=== PATIENT | female | born 1965 | race African-American/Black ===

== ENCOUNTER 2016-08-28 12:21 | Inpatient (IN) | payer OTHER ==
[2016-08-28 14:51] VITALS: BMI 24.9
--- NOTE | 2016-08-28 16:48 | HP ---
CIWA Score - CIWA Score Nausea/Vomitin-No Nausea/No Vomiting Muscle Tremors: 4-Moderate,w/Arms Extend Anxiety: 4-Mod. Anxious/Guarded Agitation: 4-Moderately Restless Paroxysmal Sweats: 3 Orientation: 0-Oriented Tacttile Disturbances: 0-None Auditory Disturbances: 0-None Visual Disturbances: 0-None Headache: 1-Very Mild CIWA-Ar Total Score: 16 Admission ROS BHS - HPI Chief Complaint: I want to stop drinking and give my self a birthday gift try to stay sober. Allergies/Adverse Reactions: Allergies Allergy/AdvReac Type Severity Reaction Status Date / Time penicillin G Allergy Severe Rash Verified 08/28/16 16:40 History of Present Illness: pt is a 50yr old female with a history of alcohol and cocaine dependence seeking detox for treatment. Exam Limitations: No Limitations - Ebola screening Have you traveled outside of the country in the last 21 days: No Have you had contact with anyone from an Ebola affected area: No Have you been sick,other than usual withdrawal symptoms: No Do you have a fever: No - Review of Systems Constitutional: Diaphoresis, Loss of Appetite, Night Sweats, Unintentional Wgt. Loss EENT: reports: No Symptoms Reported Respiratory: reports: Cough, Productive cough Cardiac: reports: No Symptoms Reported GI: reports: Poor Appetite, Poor Fluid Intake : reports: No Symptoms Reported Musculoskeletal: reports: Joint Pain Integumentary: reports: Flushing, Sweating Neuro: reports: Tingling, Tremors Endocrine: reports: Excessive Sweating, Flushing, Intolerance to Cold, Intolerance to Heat Hematology: reports: No Symptoms Reported Psychiatric: reports: Judgement Intact, Mood/Affect Appropiate, Orientated x3, Agitated, Anxious Other Systems: Reviewed and Negative Patient History - Patient Medical History Hx Anemia: No Hx Asthma: No Hx Chronic Obstructive Pulmonary Disease (COPD): No Hx Cancer: No Hx Cardiac Disorders: No Hx Congestive Heart Failure: No Hx Hypertension: No Hx Hypercholesterolemia: No Hx Pacemaker: No HX Cerebrovascular Accident: No Hx Seizures: No Hx Dementia: No Hx Diabetes: No Hx Gastrointestinal Disorders: No Hx Liver Disease: No Hx Genitourinary Disorders: No Hx Sexually Transmitted Disorders: No Hx Renal Disease (ESRD): No Hx Thyroid Disease: No Hx Human Immunodeficiency Virus (HIV): No (negative) Hx Hepatitis C: No (negative) Hx Depression: Yes Hx Suicide Attempt: No (denies) Hx Bipolar Disorder: Yes Hx Schizophrenia: Yes - Patient Surgical History Past Surgical History: Yes Hx Abdominal Surgery: Yes Hx Cholecystectomy: Yes - PPD History Previous Implant?: Yes Documented Results: Negative w/o proof PPD to be Administered?: Yes - Reproductive History Patient is a Female of Child Bearing Age (11 -55 yrs old): Yes Last Menstrual Period: 08/03/16 Patient : No - Smoking Cessation Smoking history: Current every day smoker Have you smoked in the past 12 months: Yes Aproximately how many cigarettes per day: 10 Hx Chewing Tobacco Use: No Initiated information on smoking cessation: Yes 'Breaking Loose' booklet given: 08/28/16 - Substance & Tx. History Hx Alcohol Use: Yes Hx Substance Use: Yes Substance Use Type: Alcohol, Cocaine - Substances Abused Alcohol Route: Oral Frequency: Daily Amount used: 3 pints vodka Age of first use: 18 Date of Last Use: 08/27/16 Crack Route: Smoking Frequency: Daily Amount used: $100 Age of first use: 23 Date of Last Use: 08/27/16 Family Disease History - Family Disease History Family History: Denies Admission Physical Exam S - Vital Signs Vital Signs: Vital Signs - 24 hr 08/28/16 14:48 Temperature 97.4 F L Pulse Rate 76 Respiratory 20 Rate Blood Pressure 105/56 - Physical General Appearance: Yes: Appropriately Dressed, Moderate Distress, Tremorous, Irritable, Sweating, Anxious HEENTM: Yes: Normal Voice Respiratory: Yes: Normal Breath Sounds, No Respiratory Distress, Rhonchi Neck: Yes: No masses,lesions,Nodules Breast: Yes: Within Normal Limits Cardiology: Yes: Regular Rhythm, Regular Rate, S1, S2 Abdominal: Yes: Normal Bowel Sounds, Non Tender, Soft Genitourinary: Yes: Within Normal Limits Back: Yes: Normal Inspection Musculoskeletal: Yes: full range of Motion Extremities: Yes: Normal Capillary Refill, Normal Inspection, Tremors Neurological: Yes: Fully Oriented, Alert, Normal Response Integumentary: Yes: Normal Color, Diaphoresis Lymphatic: Yes: Within Normal Limits - Diagnostic (1) Alcohol dependence with uncomplicated withdrawal Current Visit: Yes Status: Chronic (2) Cocaine dependence Current Visit: Yes Status: Chronic Qualifiers: Substance use status: uncomplicated Qualified Code(s): F14.20 - Cocaine dependence, uncomplicated (3) Nicotine dependence Current Visit: Yes Status: Chronic Qualifiers: Nicotine product type: cigarettes Substance use status: uncomplicated Qualified Code(s): F17.210 - Nicotine dependence, cigarettes, uncomplicated (4) Weight loss Current Visit: Yes Status: Acute Cleared for Admission S - Detox or Rehab [facility] Level of Care: Medically Managed Detox Regimen/Protocol: Librium S Breath Alcohol Content Breath Alcohol Content: 0 Urine Pregancy Test - Result Urine Test Results: Negative- NO Line Present Urine Drug Screen - Results Drug Screen Negative: No Urine Drug Screen Results: CHRISTIE-Cocaine, TCA-Tricyclic Antidepress
[2016-08-28] MEDS ORDERED: guaiFENesin/D-METHORPHAN HB 10 ML UNIT-DOSE CUPS PO PRN (17:02)
[2016-08-28] MEDS ORDERED: P-EPHED 60MG/TRIPROLIDI 2.5MG TABLET PO PRN (17:02)
[2016-08-28] MEDS ORDERED: MAG HYDROX/AL HYDROX/SIMETH 30 ML UNIT-DOSE CUP PO PRN (17:02)
[2016-08-28] MEDS ORDERED: MAGNESIUM CITRATE 300 ML BOTTLE PO PRN (17:02)
[2016-08-28] MEDS ORDERED: hydrOXYzine PAMOATE 50 MG CAPSULE (FP) PO PRN (17:02)
[2016-08-28] MEDS ORDERED: chlordiazePOXIDE HCL 25 MG CAPSULE PO PRN (17:02)
[2016-08-28] MEDS ORDERED: MAGNESIUM HYDROX 2400MG/30ML ORAL SUSPENSION 30 ML CUP PO PRN (17:02)
[2016-08-28] MEDS ORDERED: MENTHOL/PHENOL 1 EACH UD MM PRN (17:02)
[2016-08-28] MEDS ORDERED: LOPERAMIDE HCL 2 MG CAPSULE PO PRN (17:02)
[2016-08-28] MEDS ORDERED: ACETAMINOPHEN 325 MG TABLET (FP) PO PRN (17:02)
[2016-08-28] MEDS ORDERED: diphenhydrAMINE HCL 50 MG CAPSULE PO PRN (17:02)
[2016-08-28] MEDS ORDERED: NICOTINE POLACRILEX 4 MG GUM BC PRN (17:02)
[2016-08-28] MEDS ORDERED: chlordiazePOXIDE HCL 25 MG CAPSULE PO ONE (18:00)
[2016-08-28] MEDS: chlordiazePOXIDE HCL 25 MG CAPSULE PO SCH (19:22)
[2016-08-28 23:12] LABS: URINE APPEARANCE CLEAR; URINE BILIRUBIN NEGATIVE (NEGATIVE); URINE BLOOD NEGATIVE (NEGATIVE); URINE COLOR AMBER; URINE GLUCOSE (UA) NEGATIVE (NEGATIVE); URINE KETONE TRACE (NEGATIVE); URINE LEUK ESTERASE NEGATIVE (NEGATIVE); URINE NITRITE NEGATIVE (NEGATIVE); URINE PROTEIN NEGATIVE (NEGATIVE); URINE UROBILINOGEN 4.0 E.U/dl E.U./dl (0.2-1.0)
[2016-08-29] MEDS: chlordiazePOXIDE HCL 25 MG CAPSULE PO SCH ×5 (05:52→22:49)
[2016-08-29] MEDS: THIAMINE HCL 100 MG TABLET (FP) PO SCH ×2 (07:31→22:49)
[2016-08-29] MEDS: PRENATAL VITAMINS W/ FOLIC ACID TABLET (FP) PO SCH (10:46)
[2016-08-29] MEDS: NICOTINE 21 MG/24 HOURS TOPICAL PATCH TD SCH (10:47)
[2016-08-29 11:15] LABS: MCH 29.8 pg (25.7-33.7); MCHC 32.8 g/dl (32.0-36.0); MEAN CELL VOLUME 90.9 fl (80-96); MEAN PLT VOLUME 8.5 fl (7.5-11.1); PLATELET COUNT 277 K/MM3 (134-434); RDW 15.6 % (11.6-15.6); WHITE BLOOD COUNT 4.4 K/mm3 (4.0-10.0)
[2016-08-29 11:23] LABS: ALBUMIN 3.8 g/dl (3.4-5.0); ANION GAP 8 (8-16); BILIRUBIN,TOTAL 0.4 mg/dL (0.2-1.0); CALCIUM 9.1 mg/dL (8.5-10.1); CO2 29 mmol/L (21-32); CREATININE 0.8 mg/dL (0.55-1.02); GLUCOSE,RANDOM 65 mg/dL (74-106); SGOT/AST 18 U/L (15-37); SGPT/ALT 23 U/L (12-78); TOT PROT 7.2 g/dl (6.4-8.2)
[2016-08-29 11:24] LABS: ALK PHOS 84 U/L (45-117)
--- NOTE | 2016-08-29 13:12 | PN ---
S CIWA - CIWA Score Nausea/Vomitin Muscle Tremors: 3 Anxiety: 3 Agitation: 3 Paroxysmal Sweats: 1-Minimal Palms Moist Orientation: 0-Oriented Tacttile Disturbances: 1-Very Mild Itch/Numbness Auditory Disturbances: 1-Very Mild Visual Disturbances: 1-Very Mild Sensitivity Headache: 2-Mild CIWA-Ar Total Score: 18 BHS Progress Note (SOAP) Subjective: ALERT,IRRITABLE,ANXIOUS,INTERRUPTED SLEEP,TREMOR Objective: 08/29/16 13:10 Vital Signs Temperature 97.9 F 08/29/16 10:30 Pulse Rate 61 08/29/16 10:30 Respiratory Rate 16 08/29/16 10:30 Blood Pressure 109/78 08/29/16 10:30 O2 Sat by Pulse Oximetry (%) EKG NSR,NORMAL ECG 08/29/16 13:10 Laboratory Last Values WBC 4.4 K/mm3 (4.0-10.0) 08/29/16 06:15 RBC 4.55 M/mm3 (3.60-5.2) 08/29/16 06:15 Hgb 13.6 GM/dL (10.7-15.3) 08/29/16 06:15 Hct 41.4 % (32.4-45.2) 08/29/16 06:15 MCV 90.9 fl (80-96) 08/29/16 06:15 MCHC 32.8 g/dl (32.0-36.0) 08/29/16 06:15 RDW 15.6 % (11.6-15.6) 08/29/16 06:15 Plt Count 277 K/MM3 (134-434) 08/29/16 06:15 MPV 8.5 fl (7.5-11.1) 08/29/16 06:15 Sodium 140 mmol/L (136-145) 08/29/16 06:15 Potassium 4.2 mmol/L (3.5-5.1) 08/29/16 06:15 Chloride 103 mmol/L (98-107) 08/29/16 06:15 Carbon Dioxide 29 mmol/L (21-32) 08/29/16 06:15 Anion Gap 8 (8-16) 08/29/16 06:15 BUN 7 mg/dL (7-18) 08/29/16 06:15 Creatinine 0.8 mg/dL (0.55-1.02) 08/29/16 06:15 Creat Clearance w eGFR > 60 (>60) 08/29/16 06:15 Random Glucose 65 mg/dL (74-106) L 08/29/16 06:15 Calcium 9.1 mg/dL (8.5-10.1) 08/29/16 06:15 Total Bilirubin 0.4 mg/dL (0.2-1.0) 08/29/16 06:15 AST 18 U/L (15-37) 08/29/16 06:15 ALT 23 U/L (12-78) 08/29/16 06:15 Alkaline Phosphatase 84 U/L (45-117) 08/29/16 06:15 Total Protein 7.2 g/dl (6.4-8.2) 08/29/16 06:15 Albumin 3.8 g/dl (3.4-5.0) 08/29/16 06:15 Urine Color Kala 08/28/16 21:10 Urine Appearance Clear 08/28/16 21:10 Urine pH 5.0 (5.0-8.0) 08/28/16 21:10 Ur Specific [place] 1.030 (1.001-1.035) 08/28/16 21:10 Urine Protein Negative (NEGATIVE) 08/28/16 21:10 Urine Glucose (UA) Negative (NEGATIVE) 08/28/16 21:10 Urine Ketones Trace (NEGATIVE) H 08/28/16 21:10 Urine Blood Negative (NEGATIVE) 08/28/16 21:10 Urine Nitrite Negative (NEGATIVE) 08/28/16 21:10 Urine Bilirubin Negative (NEGATIVE) 08/28/16 21:10 Urine Urobilinogen 4.0 e.u/dl E.U./dl (0.2-1.0) H 08/28/16 21:10 Ur Leukocyte Esterase Negative (NEGATIVE) 08/28/16 21:10 LABS PENDING Assessment: 08/29/16 13:11 WITHDRAWAL SYMPTOM Plan: CONTINUE DETOX,INITIAL GLUCOSE IS 67,WILL REPEAT BGM DAILY
--- NOTE | 2016-08-29 13:23 | CONSULT ---
[facility] Psychiatric Consult - Data Date of interview: 08/29/16 Admission source: [facility] Identifying data: First admission to [facility] for this 50 y/o AA female seeking detox treatment on for alcohol and cocaine (crack) dependence.Patient is single without children,domiciled (3/4 housing), unemployed and supported on SSI benefits. Substance Abuse History: - Smoking Cessation. Smoking history: Current every day smoker. Have you smoked in the past 12 months: Yes. Aproximately how many cigarettes per day: 10. Hx Chewing Tobacco Use: No. Initiated information on smoking cessation: Yes. 'Breaking Loose' booklet given: 08/28/16. - Substance & Tx. History. Hx Alcohol Use: Yes. Hx Substance Use: Yes. Substance Use Type : Alcohol, Cocaine. - Substances Abused. Alcohol. Route: Oral. Frequency : Daily. Amount used: 3 pints vodka. Age of first use: 18. Date of Last Use: 08/27/16. Crack. Route: Smoking. Frequency: Daily. Amount used: $100. Age of first use: 23. Date of Last Use: 08/27/16 Medical History: abdominal hernia, sx for removal of foreign object, abdomen, fx , right leg Psychiatric History: History of multiple psychiatrix c hospitalizations.Patient states that she is known a few institutions,including [facility] in [facility].Diagnosed with " bipolar disorder and schizophrenia." Medications : lexapro 10 mg/day + seroquel 400 mg/hs (self-report).Ms Riley reports that she gets psychiatric OPD services at the [facility] program in [facility].She denies history of suicide attempts. Physical/Sexual Abuse/Trauma History: Patient denies. Additional Comment: Urine Drug Screen Results: CHRISTIE-Cocaine, TCA-Tricyclic Antidepressant.Noted. Mental Status Exam - Mental Status Exam Alert and Oriented to: Time, Place, Person Cognitive Function: Good Patient Appearance: Well Groomed Mood: Withdrawn, Anxious, Apprehensive Affect: Mood Congruent Patient Behavior: Fatigued, Appropriate, Cooperative Speech Pattern: Clear, Appropriate Voice Loudness: Normal Thought Process: Goal Oriented Thought Disorder: Not Present Hallucinations: Denies Suicidal Ideation: Denies Homicidal Ideation: Denies Insight/Judgement: Fair Sleep: Poorly, Difficulty falling asleep Appetite: Good Muscle strength/Tone: Normal Gait/Station: Normal Psychiatric Findings - Problem List ([place] 1, 2,3) (1) Alcohol dependence with uncomplicated withdrawal Current Visit: Yes Status: Acute (2) Cocaine dependence Current Visit: Yes Status: Acute Qualifiers: Substance use status: uncomplicated Qualified Code(s): F14.20 - Cocaine dependence, uncomplicated (3) Nicotine dependence Current Visit: Yes Status: Acute Qualifiers: Nicotine product type: cigarettes Substance use status: uncomplicated Qualified Code(s): F17.210 - Nicotine dependence, cigarettes, uncomplicated (4) Schizoaffective disorder Current Visit: Yes Status: Chronic - Initial Treatment Plan Initial Treatment Plan: Psychoeducation.Detoxification.Medications : lexapro 10 mg po daily + seroquel 200 mg po hs (reduced until further orders).Side effects/ benefits of these drugs are discussed with the patient.She agrees with this plan of care.Observation.
[2016-08-29 14:11] LABS: HIV 1 & 2 AB NEGATIVE; HIV 1 AGp24 NEGATIVE
[2016-08-29] MEDS: ESCITALOPRAM OXALATE 10 MG TABLET (FP) PO SCH (14:33)
[2016-08-29] MEDS: IBUPROFEN 400 MG TABLET (FP) PO PRN (18:27)
[2016-08-29] MEDS: QUEtiapine FUMARATE 200 MG TABLET PO SCH (22:49)
[2016-08-30] MEDS: chlordiazePOXIDE HCL 25 MG CAPSULE PO SCH ×2 (05:56→10:37)
[2016-08-30] MEDS: PRENATAL VITAMINS W/ FOLIC ACID TABLET (FP) PO SCH (10:37)
[2016-08-30] MEDS: ESCITALOPRAM OXALATE 10 MG TABLET (FP) PO SCH (10:37)
[2016-08-30] MEDS: NICOTINE 21 MG/24 HOURS TOPICAL PATCH TD SCH (10:39)
[2016-08-30] MEDS: IBUPROFEN 400 MG TABLET (FP) PO PRN ×2 (11:02→22:39)
--- NOTE | 2016-08-30 13:36 | PN ---
S CIWA - CIWA Score Nausea/Vomitin Muscle Tremors: 3 Anxiety: 2 Agitation: 2 Paroxysmal Sweats: 1-Minimal Palms Moist Orientation: 0-Oriented Tacttile Disturbances: 1-Very Mild Itch/Numbness Auditory Disturbances: 1-Very Mild Visual Disturbances: 1-Very Mild Sensitivity Headache: 2-Mild CIWA-Ar Total Score: 16 BHS Progress Note (SOAP) Subjective: ALERT,IRRITABLE,ANXIOUS,INTERRUPTED SLEEP Objective: 08/30/16 13:36 Vital Signs Temperature 98.1 F 08/30/16 09:57 Pulse Rate 89 08/30/16 09:57 Respiratory Rate 18 08/30/16 09:57 Blood Pressure 120/52 08/30/16 09:57 O2 Sat by Pulse Oximetry (%) Assessment: 08/30/16 13:36 WITHDRAWAL SYMPTOM Plan: CONTINUE DETOX
[2016-08-30] MEDS: chlordiazePOXIDE 5 MG CAPSULE PO SCH ×2 (17:36→22:36)
[2016-08-30] MEDS: QUEtiapine FUMARATE 200 MG TABLET PO SCH (22:36)
[2016-08-30] MEDS: THIAMINE HCL 100 MG TABLET (FP) PO SCH (22:36)
--- NOTE | 2016-08-30 22:54 | EKG ---
Test Reason : Blood Pressure : / mmHG Vent. Rate : 064 BPM Atrial Rate : 064 BPM P-R Int : 136 ms QRS Dur : 070 ms QT Int : 460 ms P-R-T Axes : 064 055 049 degrees QTc Int : 474 ms POOR DATA QUALITY, INTERPRETATION MAY BE ADVERSELY AFFECTED NORMAL SINUS RHYTHM NORMAL ECG NO PREVIOUS ECGS AVAILABLE Confirmed by CATARINA COLORADO MD ([id number]) on 08/30/2016 10:53:53 PM Referred By: Jaime Fuentes Confirmed By:CATARINA COLORADO MD
[2016-08-31] MEDS: chlordiazePOXIDE 5 MG CAPSULE PO SCH ×2 (05:34→10:42)
[2016-08-31] MEDS: ESCITALOPRAM OXALATE 10 MG TABLET (FP) PO SCH (10:42)
[2016-08-31] MEDS: PRENATAL VITAMINS W/ FOLIC ACID TABLET (FP) PO SCH (10:42)
[2016-08-31] MEDS: NICOTINE 21 MG/24 HOURS TOPICAL PATCH TD SCH (10:43)
--- NOTE | 2016-08-31 11:04 | PN ---
BHS Progress Note (SOAP) Subjective: feeling better , Objective: 08/31/16 11:02 Vital Signs Temperature 98.2 F 08/31/16 10:18 Pulse Rate 71 08/31/16 10:18 Respiratory Rate 16 08/31/16 10:18 Blood Pressure 132/70 08/31/16 10:18 O2 Sat by Pulse Oximetry (%) Laboratory Tests 08/28/16 08/29/16 08/29/16 21:10 06:15 06:15 WBC 4.4 RBC 4.55 Hgb 13.6 Hct 41.4 MCV 90.9 MCHC 32.8 RDW 15.6 Plt Count 277 MPV 8.5 Sodium 140 Potassium 4.2 Chloride 103 Carbon Dioxide 29 Anion Gap 8 BUN 7 Creatinine 0.8 Creat Clearance w eGFR > 60 POC Glucometer Random Glucose 65 L Calcium 9.1 Total Bilirubin 0.4 AST 18 ALT 23 Alkaline Phosphatase 84 Total Protein 7.2 Albumin 3.8 Urine Color Kala Urine Appearance Clear Urine pH 5.0 Ur Specific [place] 1.030 Urine Protein Negative Urine Glucose (UA) Negative Urine Ketones Trace H Urine Blood Negative Urine Nitrite Negative Urine Bilirubin Negative Urine Urobilinogen 4.0 e.u/dl H Ur Leukocyte Esterase Negative RPR Titer HIV 1&2 Antibody Screen HIV P24 Antigen 08/29/16 08/29/16 08/30/16 06:15 09:30 07:26 WBC RBC Hgb Hct MCV MCHC RDW Plt Count MPV Sodium Potassium Chloride Carbon Dioxide Anion Gap BUN Creatinine Creat Clearance w eGFR POC Glucometer 81 Random Glucose Calcium Total Bilirubin AST ALT Alkaline Phosphatase Total Protein Albumin Urine Color Urine Appearance Urine pH Ur Specific [place] Urine Protein Urine Glucose (UA) Urine Ketones Urine Blood Urine Nitrite Urine Bilirubin Urine Urobilinogen Ur Leukocyte Esterase RPR Titer Nonreactive HIV 1&2 Antibody Screen Negative HIV P24 Antigen Negative 08/31/16 05:34 WBC RBC Hgb Hct MCV MCHC RDW Plt Count MPV Sodium Potassium Chloride Carbon Dioxide Anion Gap BUN Creatinine Creat Clearance w eGFR POC Glucometer 84 Random Glucose Calcium Total Bilirubin AST ALT Alkaline Phosphatase Total Protein Albumin Urine Color Urine Appearance Urine pH Ur Specific [place] Urine Protein Urine Glucose (UA) Urine Ketones Urine Blood Urine Nitrite Urine Bilirubin Urine Urobilinogen Ur Leukocyte Esterase RPR Titer HIV 1&2 Antibody Screen HIV P24 Antigen pt aox3 in nad ambulating Assessment: 08/31/16 11:03 withdrawal sx's Plan: cont. detox increase fluids d/c in am
[2016-08-31] MEDS: IBUPROFEN 400 MG TABLET (FP) PO PRN (12:47)
--- NOTE | 2016-08-31 12:54 | PN ---
Psychiatric Progress Note Vital Signs: Vital Signs Period Temp Pulse Resp BP Sys/Kirkpatrick Pulse Ox Last 24 Hr 97.2 F-99.1 F 68-111 16-18 99-140/57-86 Date of Session: 08/31/16 Chief Complaint:: Seroquel dosage HPI: Patient reports taking priorm to admission Seroquel 400mg po qhs for a long time , reports not sleeping well and asking to restart preadmission dosage of Seroquel Current Medications: Active Medications Generic Name Dose Route Start Last Admin Trade Name Freq PRN Reason Stop Dose Admin Acetaminophen 650 mg 08/28/16 17:02 Tylenol - PO Q4H PRN FEVER OR PAIN Al Hydroxide/Mg Hydroxide 30 ml 08/28/16 17:02 Mylanta Oral Suspension - PO Q6H PRN DYSPEPSIA Chlordiazepoxide HCl 10 mg 08/31/16 17:00 Librium - PO 09/01/16 11:01 [id number] PRANAY Chlordiazepoxide HCl 25 mg 08/28/16 17:02 Librium - PO 08/31/16 17:01 Q4H PRN WITHDRAWAL(CONT SUBST) Diphenhydramine HCl 50 mg 08/28/16 17:02 Benadryl - PO HSMR1 PRN INSOMNIA Escitalopram Oxalate 10 mg 08/29/16 13:30 08/31/16 10:42 Lexapro - PO 10 mg DAILY PRANAY Administration Eucalyptus/Menthol/Phenol/Sorbitol 1 each 08/28/16 17:02 Cepastat Lozenge - MM Q4H PRN SORE THROAT Guaifenesin 10 ml 08/28/16 17:02 Robitussin Dm - PO Q6H PRN COUGH Hydroxyzine Pamoate 50 mg 08/28/16 17:02 Vistaril - PO Q4H PRN AGITATION Ibuprofen 400 mg 08/28/16 17:02 08/31/16 12:47 Motrin - PO 400 mg Q6H PRN Administration SEVERE PAIN Loperamide HCl 4 mg 08/28/16 17:02 Imodium - PO Q6H PRN DIARRHEA Magnesium Citrate 300 ml 08/28/16 17:02 Citroma - PO Q48H PRN CONSTIPATION Magnesium Hydroxide 30 ml 08/28/16 17:02 Milk Of Magnesia - PO DAILY PRN CONSTIPATION Nicotine 21 mg 08/29/16 10:00 08/31/16 10:43 Nicoderm Patch - TD Not Given DAILY PRANAY Nicotine Polacrilex 4 mg 08/28/16 17:02 Nicorette Gum - BC Q2H PRN NICOTINE REPLACEMENT RX Multivit/Folic Acid/Iron 1 tab 08/29/16 10:00 08/31/16 10:42 Vitamins (Sjr) - PO 1 tab DAILY PRANAY Administration Pseudoephedrine/Triprolidine 1 combo 08/28/16 17:02 Actifed - PO TID PRN NASAL CONGESTION Thiamine HCl 100 mg 08/28/16 22:00 08/30/16 22:36 Vitamin B1 - PO 100 mg HS PRANAY Administration Mental Status Exam - Mental Status Exam Alert and Oriented to: Person Cognitive Function: Fair Patient Appearance: Unkempt Mood: Anxious Affect: Mood Congruent, Constricted Patient Behavior: Cooperative Speech Pattern: Appropriate Voice Loudness: Mildly Soft/Quiet Thought Process: Circumstantial Thought Disorder: Being Controlled Hallucinations: Denies Suicidal Ideation: Denies Homicidal Ideation: Denies Insight/Judgement: Fair Sleep: Difficulty falling asleep Appetite: Weight gain Muscle strength/Tone: Normal Gait/Station: Normal Additional Comments: Seroquel 400mg po qhs Psychiatric Treatment Plan - Problem List (1) Alcohol dependence with uncomplicated withdrawal Current Visit: Yes (2) Cocaine dependence Current Visit: Yes Qualifiers: Substance use status: uncomplicated Qualified Code(s): F14.20 - Cocaine dependence, uncomplicated (3) Nicotine dependence Current Visit: Yes Qualifiers: Nicotine product type: cigarettes Substance use status: uncomplicated Qualified Code(s): F17.210 - Nicotine dependence, cigarettes, uncomplicated (4) Schizoaffective disorder Current Visit: Yes Initial treatment plan: Seroquel 400mg po qhs
[2016-08-31] MEDS: chlordiazePOXIDE HCL 10 MG CAPSULE PO SCH ×2 (17:07→22:16)
[2016-08-31] MEDS ORDERED: QUEtiapine FUMARATE 400 MG TABLET PO SCH (22:00)
[2016-08-31] MEDS: THIAMINE HCL 100 MG TABLET (FP) PO SCH (22:15)
[2016-09-01] MEDS: chlordiazePOXIDE HCL 10 MG CAPSULE PO SCH (05:28)
--- NOTE | 2016-09-01 09:09 | DS ---
[facility] Detox Discharge Summary Admission Date: 08/28/16 Discharge Date: 09/01/16 - History Present History: Alcohol Dependence, Cocaine Dependence - Physical Exam Results Vital Signs: Vital Signs Temperature 97.9 F 09/01/16 06:21 Pulse Rate 61 09/01/16 06:21 Respiratory Rate 18 09/01/16 06:21 Blood Pressure 112/66 09/01/16 06:21 O2 Sat by Pulse Oximetry (%) - Treatment Hospital Course: Detox Protocol Followed, Detoxed Safely, Responded well, Discharged Condition Good, Rehab Referral Accepted - Medication Discharge Medications: Ambulatory Orders Escitalopram Oxalate [Lexapro -] 10 mg PO DAILY 08/28/16 Quetiapine Fumarate [Seroquel -] 400 mg PO HS 08/28/16 Escitalopram Oxalate [Lexapro -] 10 mg PO DAILY #30 tablet 08/29/16 Quetiapine Fumarate [Seroquel -] 300 mg PO HS #30 tab 08/29/16 - Diagnosis (1) Alcohol dependence with uncomplicated withdrawal Current Visit: Yes Status: Chronic (2) Cocaine dependence Current Visit: Yes Status: Chronic Qualifiers: Substance use status: uncomplicated Qualified Code(s): F14.20 - Cocaine dependence, uncomplicated (3) Nicotine dependence Current Visit: Yes Status: Chronic Qualifiers: Nicotine product type: cigarettes Substance use status: uncomplicated Qualified Code(s): F17.210 - Nicotine dependence, cigarettes, uncomplicated (4) Weight loss Current Visit: Yes Status: Acute - AMA Did Patient Leave Against Medical Advice: No
[2016-09-01] MEDS: PRENATAL VITAMINS W/ FOLIC ACID TABLET (FP) PO SCH (09:28)
[2016-09-01] MEDS: ESCITALOPRAM OXALATE 10 MG TABLET (FP) PO SCH (09:28)
[2016-09-01 10:16] VITALS: BP 110/69; PULSE 82; TEMP 96.6
== END 2016-09-01 09:50 | disposition home or self-care (01) | DRG 774 ==
LOC: YASAS 12:21 → Y6N 17:37
PROVIDERS: ADMIT Internal Medicine; ATTEND Internal Medicine
PROC: HZ2ZZZZ Detoxification Services for Substance Abuse Treatment (ICD-10-PCS; principal; 2016-09-01)
DX: F10.230 Alcohol dependence with withdrawal, uncomplicated (principal); F14.20 Cocaine dependence, uncomplicated; F17.210 Nicotine dependence, cigarettes, uncomplicated; F25.9 Schizoaffective disorder, unspecified; R63.4 Abnormal weight loss; Z68.24 Body mass index [BMI] 24.0-24.9, adult
CPT/HCPCS: 36415; 80053; 81003; 85027; 86593; 87389; 93005; 93010